=== PATIENT | female | born 1990 | race Two or more races ===

== ENCOUNTER 2024-10-17 07:18 | Outpatient (CLI) | payer OTHER ==
--- NOTE | 2024-10-19 04:59 | DVH ---
Procedure: NM NM THYROID IMAG UPTAKE 6 24 HR Exam Date: 10/17/2024 07:47 AM Reason for study/Clinical History: THYROTOXICOSIS Comparison Study: None I-123 Thyroid [Uptake and] Scan TECHNIQUE: The patient ingested a capsule containing 296 uCi of Iodine-123. Uptake in the neck and thigh was me asured at 6 and 24 hours after ingestion. FINDINGS: There is normal symmetric appearance of the thyroid gland and homogeneous uptake of radioiodine. Radioiodine uptake at 4 hours is 56 % (normal is 0-15%). The 24-hour uptake is 19.2 % (normal is 10-3 5%). IMPRESSION: Indeterminate thyroid uptake scan. There is increased radiopharmaceutical uptakeactivity at 4 hours. Normal radiopharmaceutical uptake activity at 24 hours. This is a nonspecific finding but can be seen in Graves disease with rapid turnover of TSH. Clinical correlation advised.
== END 2024-10-17 17:00 | disposition home or self-care (01) ==
LOC: EDSEX 07:18 → XYW 07:18
DX: E05.00 Thyrotoxicosis with diffuse goiter without thyrotoxic crisis or storm (principal)
CPT/HCPCS: 78014; A9516

== ENCOUNTER → 2024-10-18 | Outpatient (CLI) | payer OTHER | END | disposition home or self-care (01) | LOC: EDSEX → XYW 07:27 → EDUNIT# 07:30 | DX: E05.00 Thyrotoxicosis with diffuse goiter without thyrotoxic crisis or storm (principal) | CPT/HCPCS: 78014; A9516 ==